=== PATIENT | female | born 1995 | race Caucasian/White ===

== ENCOUNTER → 2018-10-09 | Outpatient (CLI) | payer OTHER ==
--- NOTE | 2018-10-09 18:21 | Diagnostic Imaging Report ---
CLINICAL INDICATION: Patient with post coital bleeding. EXAM: Transabdominal and transvaginal ultrasound of the pelvis. COMPARISON: None. FINDINGS: There is a 6 mm x 5 mm x 8 mm nabothian cyst. Otherwise, the uterus has normal configuration, echogenicity and size. Uterus measures 8.1 cm x 6.2 cm x 4.2 cm. Endometrial stripe is 7 mm. The right and left ovaries are unable to be visualized and cannot be evaluated. There is no gross abnormality in the right and left adnexal regions as visualized. There is no significant intrapelvic free fluid. IMPRESSION: 1: Both ovaries are unable to be visualized on this exam, limiting evaluation. Otherwise, there is no evidence of acute abnormality seen on this exam. There is no significant pelvic free fluid. 2: Nabothian cyst. Dictated by: Dictated on workstation # [id number]
== END ==
LOC: RAD 16:20
PROVIDERS: ATTEND Obstetrics & Gynecology
DX: N88.8 Other specified noninflammatory disorders of cervix uteri (principal); N93.0 Postcoital and contact bleeding
CPT/HCPCS: 76830; 76856

== ENCOUNTER 2018-10-31 05:33 | Outpatient (CLI) | payer OTHER ==
[~2018-10-31] VITALS: Ht 171.4 cm; Wt 77.1 kg
== END 2018-10-31 09:44 | disposition home or self-care (01) ==
LOC: PREOP 05:33
PROVIDERS: ATTEND Obstetrics & Gynecology
DX: Z01.818 Encounter for other preprocedural examination (principal)

== ENCOUNTER 2018-11-02 08:11 | Day surgery (SDC) | payer OTHER ==
[2018-11-02] VITALS (12 sets, daily range): BP systolic 92–114; BP diastolic 55–85
[~2018-11-02] VITALS: Ht 171.4 cm; Wt 77.1 kg
[2018-11-02] MEDS: LACTATED RINGERS 1,000 ML IV PRN ×2 (08:45→11:22)
[2018-11-02] MEDS ORDERED: ceFAZolin INJECTION 1,000 MG in WATER (STERILE) FOR INJECTION 10 ML IV ONE (08:45)
[2018-11-02 08:59] LABS: BASOPHILS % (AUTO) 1 % (0-10); EOSINOPHILS # (AUTO) 0.1 10^3/uL (0.0-0.3); EOSINOPHILS % (AUTO) 1 % (0-10); HEMATOCRIT 41 % (35-52); HEMOGLOBIN 13.8 G/DL (11.5-16.0); LYMPHOCYTES # (AUTO) 1.8 X 10^3 (1.0-4.0); LYMPHOCYTES % (AUTO) 29 % (12-44); MEAN CORPUSCULAR HEMOGLOBIN 30 PG (25-34); MEAN CORPUSCULAR HGB CONC 34 G/DL (32-36); MEAN CORPUSCULAR VOLUME 89 FL (80-99); MEAN PLATELET VOLUME 11.4 FL (7.4-10.4); MONOCYTES # (AUTO) 0.4 X 10^3 (0.0-1.0); MONOCYTES % (AUTO) 6 % (0-12); NEUTROPHILS % (AUTO) 64 % (42-75); PLATELET COUNT 238 10^3/uL (130-400); RED CELL DISTRIBUTION WIDTH 11.9 % (10.0-14.5); WHITE BLOOD COUNT 6.3 10^3/uL (4.3-11.0)
[2018-11-02] MEDS ORDERED: BUPIVACAINE 0.25% 30 ML (SENSORCAINE) VIAL ONE (10:00)
[2018-11-02] MEDS ORDERED: DEXAMETHASONE 10 MG/ML (DECADRON) 1 ML VIAL ONE (10:21)
[2018-11-02] MEDS ORDERED: ROCURONIUM 10 MG/ML 5 ML SYRINGE IV ONE (10:21)
[2018-11-02] MEDS ORDERED: MIDAZOLAM 2 MG/2 ML (VERSED) VIAL ONE (10:21)
[2018-11-02] MEDS ORDERED: NEOSTIGMINE 1 MG/ML 5 ML SYRINGE ONE (10:21)
[2018-11-02] MEDS ORDERED: LIDOCAINE PF 2% 5 ML (XYLOCAINE) VIAL ONE (10:21)
[2018-11-02] MEDS ORDERED: proPOfol 200 MG/20 ML (DIPRIVAN) VIAL IV ONE (10:21)
[2018-11-02] MEDS ORDERED: ONDANSETRON 4 MG/2 ML (SDV) Z0FRAN ONE (10:21)
[2018-11-02] MEDS ORDERED: SEVOFLURANE (ULTANE) 15 ML INHAL SOLN ONE (10:21)
[2018-11-02] MEDS ORDERED: GLYCOPYRROLATE 0.2 MG/ML (ROBINUL) 2 ML VIAL ONE (10:22)
[2018-11-02] MEDS ORDERED: fentaNYL INJECTION 100 MCG/2 ML AMP ONE (10:22)
--- NOTE | 2018-11-02 10:27 | Progress Note-Pre Operative ---
Pre-Operative Progress Note H&P Reviewed The H&P was reviewed, patient examined and no changes noted. Date Seen by Provider: November 02, 2018 Time Seen by Provider: 09:45 Date H&P Reviewed: November 02, 2018 Time H&P Reviewed: 09:45 Pre-Operative Diagnosis: Postcoital bleeding DALLIN KATZ DO November 02, 2018 10:27
[2018-11-02] MEDS ORDERED: D5 LR IV SOLUTION 1,000 ML IV SCH (10:28)
[2018-11-02] MEDS ORDERED: IBUP-1773 PO (10:30)
[2018-11-02] MEDS ORDERED: HYDR-4226 PO (10:30)
[2018-11-02] MEDS ORDERED: ONDANSETRON 4 MG/2 ML (SDV) Z0FRAN IVP PRN ×2 (10:30→12:15)
[2018-11-02] MEDS ORDERED: KETOROLAC 30 MG/ML VIAL IVP ONE (10:30)
[2018-11-02] MEDS ORDERED: HYDROcodone/APAP 5 MG/325 MG (LORTAB) TAB PO PRN (10:30)
--- NOTE | 2018-11-02 10:31 | Discharge Inst-Women's Service ---
Discharge Inst-Women's Serv Depart Medication/Instructions New, Converted or Re-Newed RX: RX on Chart Consults/Follow Up Additional Follow Up: Yes Orders/Referrals Dr. Cordova in 2 weeks Activity Activity: Activity as Tolerated Driving Instructions: No Driving for 1 Week NO SMOKING: NO SMOKING Nothing Inside Vagina: No Douching, No Athelstan, No Tampons Diet Discharge Diet: No Restrictions Symptoms to Report to : Bleeding Excessive, Pain Increased, Fever Over 101 Degrees F, Vaginal Bleeding Increase, Questions/Concerns For Any Problems or Questions: Contact Your Physician Skin/Wound Care Infection Signs and Symptoms: Increased Redness, Foul Odor of Wound, Increased Drainage, Skin Itchy or Has a Rash, Increased Swelling, Temperature Above 101 F Operative Area Clean and Dry: Keep Incision Clean/Dry Stitches/Nita/Dermabond: Dermabond, Care of Stitches Bathing Instructions: DALLIN Kat DO November 02, 2018 10:31
[2018-11-02] MEDS ORDERED: METHYLENE BLUE IV ONE (11:21)
--- OUTSIDE RECORDS SUMMARY | 2018-11-02 12:14 | XMS REPORT ---
Author Author JP HAQUE [facility] eClinicalWorks Address Unknown Phone Unavailable Care Team Providers Care Corrective Therapy Aide Name Role Phone JP HAQUE CP Unavailable Allergies, Adverse Reactions, Alerts Substance Reaction Event Type N.K.D.A. Info Not Available Non Drug Allergy Problems Problem Type Condition ICD-9 Code Onset Dates Condition Status Assessment Overweight (BMI 25.0-29.9) 278.02 Active Medications Medication Code System Code Instructions Start Date End Date Status Dosage Venlafaxine HCl [facility] [address]-32 37.5 MG Orally Once a day 1 tablet with food Phentermine HCl [facility] [address]-21 37.5 MG Orally Once a day Feb 18, 2015 Mar 20, 2015 as directed Procedures Procedure Coding System Code Date Office Visit, New Pt., Level 4 CPT-4 91650 Feb 18, 2015 Vital Signs Date/Time: Feb 18, 2015 Temperature 98.7 F Weight 165.1 lbs Height 68 in BMI 25.10 Index Blood Pressure Diastolic 88 mmHg Blood Pressure Systolic 110 mmHg Cardiac Monitoring Heart Rate 78 bpm Results No Known Results Summary Purpose eClinicalWorks Submission
[2018-11-02] MEDS ORDERED: HYDROmorphone 2 MG/ML VIAL (DILAUDID) IV ONE (12:15)
[2018-11-02] MEDS ORDERED: morphine INJ 10 MG/ML 1ML (SYR OR VIAL) IVP ONE (12:15)
[2018-11-02] MEDS ORDERED: MEPERIDINE (DEMEROL) INJ 50 MG/ML ONE (12:15)
--- OUTSIDE RECORDS SUMMARY | 2018-11-02 12:15 | XMS REPORT | Continuity of Care Document ---
Author Organization Unknown Address Unknown Allergies Active Description Code Type Severity Reaction Onset Reported/Identified Relationship to Patient Clinical Status Yes No Known Drug Allergies [id number] Drug Allergy Unknown N/A 10/31/2018 Medications There is no data. Problems Date Dx Coded Attending Type Code Diagnosis Diagnosed By 10/10/2018 DALLIN KATZ DO Ot N88.8 OTHER SPECIFIED NONINFLAMMATORY DISORDER 10/10/2018 REINALDOECH DALLIN GIBBONS S Ot N93.0 POSTCOITAL AND CONTACT BLEEDING 10/10/2018 REINALDOECH DALLIN GIBBONS Ot N88.8 OTHER SPECIFIED NONINFLAMMATORY DISORDER 10/10/2018 FENECH DO, DALLIN S Ot N93.0 POSTCOITAL AND CONTACT BLEEDING 10/15/2018 REINALDOECH DALLIN GIBBONS Ot N88.8 OTHER SPECIFIED NONINFLAMMATORY DISORDER 10/15/2018 FENECH DO, DALLIN S Ot N93.0 POSTCOITAL AND CONTACT BLEEDING 10/31/2018 REINALDOECH DALLIN GIBBONS Ot Z01.818 ENCOUNTER FOR OTHER PREPROCEDURAL EXAMIN 11/01/2018 DALLIN KATZ DO Ot Z01.818 ENCOUNTER FOR OTHER PREPROCEDURAL EXAMIN Procedures There is no data. Results There is no data. Encounters ACCT No. Visit Date/Time Discharge Status Pt. Type Provider Facility Loc./Unit Complaint [id number] 10/31/2018 05:33:00 10/31/2018 09:44:00 DIS Outpatient DALLIN KATZ DO [facility] PREOP POST COITAL BLEEDING [id number] 10/09/2018 16:20:00 10/09/2018 23:59:59 CLS Outpatient DALLIN KATZ DO [facility] RAD POSTCOITAL BLEEDING [id number] 11/02/2018 10:00:00 PEN Preadmit DALLIN KATZ DO [facility] SDC POST COITAL BLEEDING
[2018-11-02] MEDS ORDERED: MEPERIDINE (DEMEROL) INJ 50 MG/ML IVP ONE (13:00)
--- NOTE | 2018-11-02 14:26 | Anesthesia-General Post-Op ---
General Patient Condition Mental Status/LOC: Same as Preop Cardiovascular: Satisfactory Nausea/Vomiting: Absent Respiratory: Satisfactory Pain: Controlled Complications: Absent Post Op Complications Complications None Follow Up Care/Instructions Patient Instructions None needed. Anesthesia/Patient Condition Patient Condition Patient is doing well, no complaints, stable vital signs, no apparent adverse anesthesia problems. No complications reported per nursing. [place] [facility] [place] Yes MANGO MOMIN CRNA November 02, 2018 14:26
--- NOTE | 2018-11-02 16:49 | OPERATIVE REPORT ---
DATE OF SERVICE: 11/02/2018 PREOPERATIVE DIAGNOSIS: A 23-year-old female with postcoital bleeding. POSTOPERATIVE DIAGNOSES: 1. A 23-year-old female with postcoital bleeding. 2. Patent bilateral fallopian tubes. PROCEDURE: Diagnostic laparoscopy with chromotubation, hysteroscopic evaluation of the endometrium with resection of endometrial polyp. SURGEON: Dallin Katz DO ANESTHESIA: General endotracheal. ESTIMATED BLOOD LOSS: Minimal. URINE OUTPUT: 250 mL clear at the end of the procedure. FLUIDS: 1200 mL lactated Ringer's solution. FINDINGS: Bilateral patent fallopian tubes with methylene blue dye spilling from both distal tubal ampulla, endometrium with excessive amounts of fluffy endometrial tissue and questionable endometrial polyp. Grossly normal-appearing external female genitalia and vaginal mucosa. SPECIMENS SENT: Endometrial curettings. INDICATIONS FOR PROCEDURE: This 23-year-old female, the patient had seen me in the office initially in consultation for infertility, but also had noticed a significant change in sexual habits with postmenopausal bleeding in the past three to six months. On evaluation, there was seen no gross abnormalities. So, we discussed the possibility of endocervical endometrial polyp causing the bleeding as well as a cervical ectropion. We also discussed the possibility of her tubes being patent or there being bleed coming from the fallopian tube that could be evaluated with laparoscopy. So, we decided to proceed with diagnostic laparoscopy and also chromotubation to ensure tubal patency. Risks of the procedure were discussed with the patient in detail including risks of bleeding, infection, damage to surrounding structures including, but not limited to bowel, bladder, ureter, kidneys, postoperative complication, postoperative recovery timeframe, possible laparotomy and even . After everything was discussed with the patient in detail the consent was reviewed in detail. The patient agreed the consent, it was signed and she was then taken to the operating room. OPERATIVE REPORT IN DETAIL: Once in the operating room, anesthesia was found to be adequate. She was placed in dorsal lithotomy position and prepped and draped in normal sterile fashion. A timeout was performed. Mcclure catheter was placed. A weighted speculum was inserted into the patient's vagina. Right angle retractor was used to visualize the cervix, which was grasped at 12 o'clock position using a long Allis clamp. I then performed a paracervical block at the 3 and 9 o'clock positions on the cervix using 0.25% Marcaine, 5 mL were injected into each injection site. I then gently sounded the uterine cavity that was sounded to be 8 cm with some gentle dilation using Fannie dilators to approximately 6 mm. I then placed the hysteroscope and using the OwlTing ??? fluid management system and normal saline as my visual medium. I advanced the hysteroscope into endometrial cavity I am able to visualize the endometrial cavity. Bilateral ostia of the tubes were noted and the endometrium in the appropriate position. There is excessive amounts of fluffy endometrial tissue and there is a posterior wall endometrial polyp. The polyp was taken off with the resection forceps using the hysteroscope under direct visualization of the hysteroscope. I also then performed a gentle curettage after that was done, I placed a Kronner uterine manipulator into the cervix deploying the balloon in the endometrial cavity. Once this was done, I removed all the instruments from the patient's vagina. Performed change of gloves and took my attention to the abdomen where infraumbilically I infiltrated this area using 0.25% Marcaine. I made an 8 mm incision and made this in an elliptical fashion to excise the previous scar tissue of the umbilicus. I then advanced a Veress needle through the incision until intraperitoneal placement was confirmed using saline drop test. An opening pressure of 5 mmHg was noted. I preceded maximum pressure of 15 mmHg. I then removed the Veress needle and introduced a 5 mm blunt trocar. Once this was in place, I am able to confirm intraperitoneal placement using the laparoscope. There was no evidence of damage upon entry and a brief scan of the upper abdominal anatomy appears grossly normal. I then had the patient placed in steep Trendelenburg and I am able to visualize all my findings as listed above. There is some pressure that needs to be applied to the Kronner uterine manipulator in order to push the methylene blue dye that is diluted in 100 mL of normal saline. However, once the pressure gradient was met and I am able to push the dye and there is bilateral spilling of blue dye from the distal tubal ampulla after which there was no active bleeding noted from any sources. I then copiously irrigated the pelvis using normal saline through the same trocar site. Once it was irrigated I then released insufflation from the trocar. I removed the trocar after introducing another 0.25% Marcaine into the peritoneal cavity for postoperative pain management. Once this was done, I removed this trocar and reapproximated the skin using 4-0 Monocryl in interrupted subcuticular stitch. Dermabond was applied to the incision and bandage was placed over this. The Kronner uterine manipulator was removed and Mcclure catheter was removed. The patient tolerated the procedure well and sent to recovery in stable condition. Lap and sponge counts were correct at the end of the procedure. Instrument counts were correct as well. Job ID: [id number] DocumentID: [id number] Dictated Date: 11/02/2018 12:17:42 Field Research Associate Date: 11/02/2018 16:47:59 Dictated By: DALLIN KATZ DO
== END 2018-11-02 14:50 | disposition home or self-care (01) ==
LOC: SDC 08:11
PROVIDERS: ATTEND Obstetrics & Gynecology
DX: N93.0 Postcoital and contact bleeding (principal); N94.19 Other specified dyspareunia; N84.0 Polyp of corpus uteri
CPT/HCPCS: 36415; 84703; 85025; 86850; 86900; 86901; 87081

== ENCOUNTER 2018-11-03 13:10 | Emergency (ER) | payer OTHER ==
[~2018-11-03] VITALS: Ht 171.4 cm; Wt 77.1 kg
[~2018-11-03 13:10] MED LIST: HYDR-4226 PO; IBUP-1773 PO
[2018-11-03] MEDS ORDERED: DIAZEPAM 5 MG (VALIUM) TABLET PO ONE (13:45)
[2018-11-03] MEDS ORDERED: morphine INJ 10 MG/ML 1ML (SYR OR VIAL) IM STA (14:33)
--- NOTE | 2018-11-03 14:43 | Diagnostic Imaging Report ---
EXAMINATION: Single frontal view of the chest with AP and supine views of the abdomen. INDICATION: Abdominal and shoulder pain. Recent abdominal surgery for endometriosis. COMPARISON: None available. FINDINGS: The lungs are clear and the pulmonary vasculature is normal. No pneumothorax or significant pleural effusion. The cardiomediastinal silhouette is normal. No acute osseous abnormality. Pneumoperitoneum is demonstrated, with gas noted underlying both hemidiaphragms. Nonobstructive bowel gas pattern. Moderate gaseous distention of the stomach. Gas and stool are noted throughout the colon. No unusual stool burden. No organomegaly or abnormal abdominal calcifications are noted. Surgical clips are demonstrated in the right upper quadrant. No acute osseous abnormality is appreciated. IMPRESSION: Pneumoperitoneum, with free air noted underlying both hemidiaphragms. This may be related to recent surgery, depending on when and what type of surgery was performed. No acute chest disease. The above findings were discussed with Dr. Edmonds in the [place] [facility] on 11/03/2018 at 1430 hrs. Dictated by: Dictated on workstation # [id number]
--- NOTE | 2018-11-03 14:57 | ED Abdominal Pain ---
General Chief Complaint: Upper Extremity Stated Complaint: RT SHOULDER PAIN Nursing Triage Note: PATIENT C/O RIGHT SHOULDER PAIN. STATES SHE HAD LAPAROSCOPIC SURGERY YESTERDAY TO REMOVE A UTERINE CYST AND FLUSH OUT HER FALLOPIAN TUBES. SHE STATES THE PAIN HAS BECOME SEVERE. Sepsis Screen: No Definite Risk History of Present Illness Date Seen by Provider: November 03, 2018 Time Seen by Provider: 14:00 Initial Comments This is a 23 y/o f who presents to the ED for evaluation. pt is s/p laparoscopic intra abdominal evaluation for fertility evaluation. Required removal of "cyst from uterus" and had the fallopian tubes "flushed out." Has been taking Ibuprofen 600mg every 6 hrs and Hydrocodone 5/325 1 tablet every 6 hrs. Has had pain since surgery with some relief at home with pain medications. Has largely been laying on R side. Reports uncontrolled R shoulder pain that is increased with inspiration over the past 2-3 hrs. No increased abdominal pain. S/p cholecystectomy. Pain is constant, 10/10, worse with movement/breathing. Allergies and Home Medications Allergies Coded Allergies: No Known Drug Allergies (Unverified , 10/31/18) Home Medications Hydrocodone/Acetaminophen 1 Each Tablet, 1 TAB PO Q4-6HR Prescribed by: DALLIN CORDOVA on 11/02/18 1030 Ibuprofen 600 Mg Tablet, 600 MG PO Q6H Prescribed by: DALLIN CORDOVA on 11/02/18 1030 Patient Home Medication List Home Medication List Reviewed: Yes Review of Systems Review of Systems Constitutional: No chills, No fever, No weakness EENTM: No Symptoms Reported Respiratory: Denies Cough, Denies Shortness of Air, Denies Stridor, Denies Wheezing Cardiovascular: Denies Chest Pain, Denies Edema, Denies Palpitations, Denies Syncope Gastrointestinal: Denies Abdominal Pain, Denies Nausea, Denies Vomiting Past Nmyafeu-Jbekyb-Zqjyue Hx Patient Social History Alcohol Use: Denies Use Recreational Drug Use: No Smoking Status: Never a Smoker 2nd Hand Smoke Exposure: No Recent Foreign Travel: No Contact w/Someone Who Travel: No Recent Infectious Disease Expo: No Recent Hopitalizations: No Physical Abuse: No Sexual Abuse: No Mistreated: No Fear: No Seasonal Allergies Seasonal Allergies: No Past Medical History Surgeries: Yes (OVARIAN CYST REMOVAL) Gallbladder Respiratory: No Cardiac: No Neurological: No Female Reproductive Disorders: Ovarian Cyst Genitourinary: No Gastrointestinal: No Musculoskeletal: No Endocrine: No HEENT: No Cancer: No Psychosocial: No Integumentary: No Blood Disorders: No Physical Exam Vital Signs Vital Signs - First Documented 11/03/18 13:20 Temp 98.3 Pulse 116 Resp 22 B/P (MAP) 119/78 (92) Pulse Ox 95 O2 Delivery Room Air Capillary Refill : Less Than 3 Seconds Height/Weight/BMI Height: 5'7.50" Weight: 170lbs. 0.0oz. 77.601144di; 26.2 BMI Method:Stated General Appearance: WD/WN, mild distress, other (anxious, non-toxic appearing) HEENT: PERRL/EOMI Respiratory: normal breath sounds, no respiratory distress, no accessory muscle use Cardiovascular: regular rate, rhythm, no JVD, no murmur Gastrointestinal: normal bowel sounds, soft, other (Mild suprapubic tenderness, mild juan-umbilical tenderness) Extremities: normal range of motion, other (no bony tenderness to R shoulder. No decreased ROM of R shoulder) Neurologic/Psychiatric: no motor/sensory deficits, alert, oriented x 3, other (Anxious/tearful) Skin: normal color, other (well healing incision to umbilical area. ) Progress/Results/Core Measures Results/Orders My Orders Orders - ROSA M STANLEY DO Acute Abd Series (11/03/18 13:33) Diazepam Tablet (Valium Tablet) (11/03/18 13:45) Morphine Injection (Morphine Injection (11/03/18 14:33) Medications Given in ED Current Medications Medications Dose Ordered Sig/Burt Route Start Time Stop Time Status Last Admin Dose Admin Diazepam 5 mg ONCE ONCE PO 11/03/18 13:45 11/03/18 13:46 DC 11/03/18 13:51 5 MG Vital Signs/I&O 11/03/18 11/03/18 13:20 15:33 Temp 98.3 97.6 Pulse 116 65 Resp 22 24 B/P (MAP) 119/78 (92) 98/60 (73) Pulse Ox 95 99 O2 Delivery Room Air Blood Pressure Mean: 92 Progress Progress Note : Progress Note 1456: Feeling significantly better. Pain controlled. Small free-abdominal air consistent with recent surgery. Non-acute abd on exam. Advised increased [place] at home for improved pain control. Notified pt's PROMOTIONS ASSISTANT Dr. Cordova of ED visit. Stable vital signs. ER return precautions given. Pt verbalized understanding. All questions answered. Diagnostic Imaging Comments Acute abd series IMPRESSION: Pneumoperitoneum, with free air noted underlying both hemidiaphragms. This may be related to recent surgery, depending on when and what type of surgery was performed. No acute chest disease. The above findings were discussed with Dr. Stanley in the [place] [facility] on 11/03/2018 at 1430 hrs. Departure Impression Primary Impression: Abdominal pain Additional Impression: Referred abdominal pain Disposition: HOME, SELF-CARE Condition: Improved Departure-Patient Inst. Decision time for Depature: 14:56 Referrals: [facility] (PCP) Primary Care Physician BOBY CALIX APRN (Family) Primary Care Physician Patient Instructions: Myomectomy, Laparoscopic Surgery Add. Discharge Instructions: Please read the attached handout. Please continue your scheduled Ibuprofen. You can increased your Hydrocodone dosing for improved pain control. DO NOT EXCEED 2 tablets every 4 hrs. Return to the ER if your symptoms worsen or you have any other concerns. All discharge instructions reviewed with patient and/or family. Voiced understanding. ROSA M STANLEY DO November 03, 2018 14:57
[2018-11-03 15:33] VITALS: BP 98/60
== END 2018-11-03 15:32 | disposition home or self-care (01) ==
LOC: EDUNIT# 13:10 → ER FS 13:11
DX: R10.33 Periumbilical pain (principal); Z90.49 Acquired absence of other specified parts of digestive tract; Z87.448 Personal history of other diseases of urinary system
CPT/HCPCS: 74022; 96372

== ENCOUNTER → 2019-01-09 | Outpatient (CLI) | payer OTHER | LOC: CARD 12:47 | PROVIDERS: ATTEND Internal Medicine Interventional Cardiology | DX: I49.3 Ventricular premature depolarization (principal) | CPT/HCPCS: 93225; 93226; 93306 ==

== ENCOUNTER 2019-01-11 12:18 | Outpatient (RCR) | payer OTHER | END 2019-04-11 | disposition home or self-care (01) | LOC: CARD 12:18 | PROVIDERS: ATTEND Internal Medicine Interventional Cardiology | DX: O99.89 Other specified diseases and conditions complicating pregnancy, childbirth and the puerperium (principal); I49.3 Ventricular premature depolarization; R00.2 Palpitations; R06.02 Shortness of breath ==

== ENCOUNTER → 2019-03-23 | Outpatient (CLI) | payer OTHER ==
--- NOTE | 2019-03-23 17:27 | Diagnostic Imaging Report ---
TECHNIQUE: Multiple real-time grayscale images were obtained over the gravid uterus. COMPARISON: None FINDINGS: Biometrical measurements are as follows: Biparietal 4.15 cm, age 18 weeks 5 days. Head circumference 16.74 cm, age 19 weeks 3 days. Abdominal circumference 13.56 cm, age 19 weeks 1 days. Femur length 3.01 cm, age 19 weeks 3 days. Sonographic estimate age: 19 weeks 2 days. Sonographic estimated date of delivery: 08/15/2019. Estimated Weight: 277 gm (+/- 40 gm). LMP percentile: 86%. heart rate: 132 beats per minute. number: 1 of 1. kidneys, bladder, ventricles, four-chamber heart and cord insertion appear normal. The spine, three-vessel cord and stomach were not adequately visualized. IMPRESSION: Single living intrauterine estimated gestational age of 19 weeks and 2 days with estimated date of delivery based on ultrasound of 08/15/2019. Dictated by: Dictated on workstation # [id number]
== END ==
LOC: RAD 14:16
PROVIDERS: ATTEND Nurse Practitioner Women's Health
DX: Z34.92 Encounter for supervision of normal pregnancy, unspecified, second trimester (principal); Z3A.19 19 weeks gestation of pregnancy
CPT/HCPCS: 76805

== ENCOUNTER 2019-05-14 12:06 | Inpatient (IN) | payer OTHER ==
[~2019-05-14] VITALS: Ht 170.2 cm; Wt 85.1 kg
--- NOTE | 2019-05-14 11:55 | NUR ---
TONE WU presented to unit via W/C from OFFICE, accompanied by GIO CHENG AND MOTHER, with c/o LOWER BACK PAIN. TONE WU weighed, gowned, voided, and to bed. EFHM and TOCO applied, VS taken. TONE WU oriented to bed controls, call light, TV, heat, and A/C controls.
[2019-05-14] MEDS ORDERED: BUTORPHANOL INJ 2 MG/ML (STADOL) VIAL IV ONE (12:15)
[2019-05-14 12:20] VITALS: BP 109/70
[2019-05-14] MEDS: D5 LR IV SOLUTION 1,000 ML IV SCH ×2 (12:36→18:27)
[2019-05-14 13:07] LABS: BASOPHILS % (AUTO) 0 % (0-10); EOSINOPHILS # (AUTO) 0.1 10^3/uL (0.0-0.3); EOSINOPHILS % (AUTO) 0 % (0-10); HEMATOCRIT 34 % (35-52); HEMOGLOBIN 11.5 G/DL (11.5-16.0); LYMPHOCYTES # (AUTO) 2.1 X 10^3 (1.0-4.0); LYMPHOCYTES % (AUTO) 17 % (12-44); MEAN CORPUSCULAR HEMOGLOBIN 30 PG (25-34); MEAN CORPUSCULAR HGB CONC 34 G/DL (32-36); MEAN CORPUSCULAR VOLUME 89 FL (80-99); MEAN PLATELET VOLUME 10.9 FL (7.4-10.4); MONOCYTES # (AUTO) 0.7 X 10^3 (0.0-1.0); MONOCYTES % (AUTO) 6 % (0-12); NEUTROPHILS # (AUTO) 9.3 X 10^3 (1.8-7.8); NEUTROPHILS % (AUTO) 77 % (42-75); PLATELET COUNT 229 10^3/uL (130-400); RED CELL DISTRIBUTION WIDTH 12.4 % (10.0-14.5); WHITE BLOOD COUNT 12.1 10^3/uL (4.3-11.0)
[2019-05-14 13:29] LABS: ALANINE AMINOTRANSFERASE 8 U/L (0-55); ALBUMIN 3.5 GM/DL (3.2-4.5); ALKALINE PHOSPHATASE 60 U/L (40-136); BILIRUBIN,TOTAL 0.2 MG/DL (0.1-1.0); BUN/CREATININE RATIO 13; CALCIUM 8.7 MG/DL (8.5-10.1); CARBON DIOXIDE 21 MMOL/L (21-32); CHLORIDE 107 MMOL/L (98-107); CREATININE SERUM 0.69 MG/DL (0.60-1.30); GFR ESTIMATED > 60; GLUCOSE 81 MG/DL (70-105); POTASSIUM 3.9 MMOL/L (3.6-5.0); SODIUM 136 MMOL/L (135-145); TOTAL PROTEIN 6.7 GM/DL (6.4-8.2)
[2019-05-14] MEDS ORDERED: BUTORPHANOL INJ 2 MG/ML (STADOL) VIAL IV PRN (13:30)
--- NOTE | 2019-05-14 15:27 | Diagnostic Imaging Report ---
PROCEDURE: US Renal Bilateral. TECHNIQUE: Multiple Real-time grayscale images were obtained over the kidneys in various projections bilaterally. INDICATION: Right upper quadrant pain and low back pain. FINDINGS: The right kidney measures 12.6 x 6 x 6.2 cm and the left is 12.1 x 6.6 x 5.7 cm. Both kidneys demonstrate normal renal cortical thickness and echogenicity. There is right hydronephrosis. There is a focal echogenic area in the inferior aspect of the right kidney measuring 1.6 x 1.5 cm. There is no hydronephrosis on the left. The bladder is grossly normal in appearance. IMPRESSION: Hydronephrosis of the right kidney. Additionally, there is a focal echogenic area in the inferior pole of the right kidney. This is nonspecific and may reflect angiomyolipoma, stone, or possibly focal nephrocalcinosis. Recommend clinical correlation and, if warranted, this could be better evaluated with CT. Dictated by: Dictated on workstation # [id number]
[2019-05-14 16:00] VITALS: BP 107/64
[2019-05-14] MEDS: fentaNYL INJECTION 100 MCG/2 ML AMP IVP PRN ×4 (16:12→17:30)
--- NOTE | 2019-05-14 16:12 | Diagnostic Imaging Report ---
PROCEDURE: CT urinary tract, rule out kidney stone. TECHNIQUE: Multiple contiguous axial images were obtained through the abdomen and pelvis without the use of intravenous contrast. Auto Exposure Controls were utilized during the CT exam to meet ALARA standards for radiation dose reduction. INDICATION: Flank pain and hematuria. FINDINGS: The heart size is normal. The lung bases are clear. The liver is normal in size and without focal lesions. Gallbladder is surgically absent. There is no biliary ductal dilatation. Spleen is normal. Pancreas and adrenal glands are unremarkable. There are several small nonobstructing stones in the left kidney. Largest measuring 5 mm. There is severe right hydronephrosis secondary to stone at the right UVJ measuring 8.4 x 5.2 mm. Incidental note is made of third trimester gestation. The osseous structures are unremarkable. IMPRESSION: Severe right hydronephrosis secondary to an 8 x 5 mm stone at the right UVJ. There are additional nonobstructing bilateral renal calculi. Dictated by: Dictated on workstation # [id number]
--- NOTE | 2019-05-14 16:52 | NUR ---
EFM removed , transferred to room 301 via bed. s/o present at bedside.
--- NOTE | 2019-05-14 17:18 | History & Physical ---
History and Physical Date Seen by Provider: May 14, 2019 Time Seen by Provider: 17:12 This patient is a 24-year-old white female with an EDC of August 21, 2019 who presented to my clinic with complaint of urinary frequency and dysuria and l ow back pain that progressed to severe right flank pain. Evaluation in my clinic ruled out labor. UA obtained in my clinic showed increased red cells consistent with a urinary tract stone. She was sent to labor and delivery for evaluation. An ultrasound noted severe right ureteral dilati on/hydronephrosis with a right renal stone and a CT showed 5 mm x 8 mm obstructing ureteral stone at the right UVJ. Dr. Dyson was consult for recommendations he agreed with IV fluids pain control use of Flomax and prophylactic antibiotics through the night and reevaluate in the morning. The patient agrees with that plan at this point. She has required several doses of fentanyl for pain control but at this point is comfortable to an acceptable degree. Patient denies rupture membranes or bleeding she has no history of stones she has no other health problems and her first was uncomp licated Allergies are none Medications are vitamins Medical social and surgical histories are per the antepartum record HEENT exam is normal Neck is supple no lymphadenopathy no thyromegaly Abdomen is gravid soft nontender nondistended Extremities show no clubbing or cyanosis. There is no Homans sign. The back shows NO significant CVA tenderness there was mild tenderness the low back with palpation Patient does complain of vaginal burning. Cervical exam shows cervix that was thick and closed monitor showed a reactive heart rate pattern and no contractions Laboratory Tests 05/14/19 12:35 UA obtained in my clinic showed 26-50 red blood cells no white blood cells few bacteria and numerous epithelial cells Ultrasound as noted above showed a 16 x 10 mm right renal stone Noncontrast CT demonstrated a 5 mm x 8 mm obstructing stone at the right UVJ Assessment and plan right ureteral stone with renal colic. Plan at this point is hydration, pain control, prophylactic antibiotic, and Flomax and observe for spontaneous passage of the stone. If her symptoms increase we will entertain transfer to a tertiary care center, if her systems persist and she does not pass a stone then again we would reconsider her management with her consult with Dr. Dyson that could result in intervention here versus transfer to a tertiary care center. Right ureteral stone with severe renal colic at 26 weeks gestation Allergies and Home Medications Allergies Coded Allergies: No Known Drug Allergies (Unverified , 10/31/18) Home Medications Hydrocodone/Acetaminophen 1 Each Tablet, 1 TAB PO Q4-6HR Prescribed by: DALLIN KATZ on 11/02/18 1030 Ibuprofen 600 Mg Tablet, 600 MG PO Q6H Prescribed by: DALLIN KATZ on 11/02/18 1030 Patient Home Medication List Home Medication List Reviewed: Yes SHALONDA CAMARGO MD May 14, 2019 17:18 POS
[2019-05-14] MEDS ORDERED: TAMSULOSIN 0.4 MG (FLOMAX) CAP PO SCH (17:30)
[2019-05-14] MEDS ORDERED: KETOROLAC 30 MG/ML VIAL ONE (17:34)
--- NOTE | 2019-05-14 17:35 | NUR ---
decreased IV fluids to 100cc/hr. Abx hung and pain meds given per dr orders. continuing to monitor closely.
[2019-05-14] MEDS: ceFAZolin 2 GM/50 ML NS 50 ML IV SCH (17:38)
[2019-05-14] MEDS: KETOROLAC 30 MG/ML VIAL IVP PRN ×2 (17:40→22:52)
[2019-05-14] MEDS ORDERED: fentaNYL INJECTION 100 MCG/2 ML AMP IVP ONE (17:45)
--- NOTE | 2019-05-14 18:14 | NUR ---
dr carvajal notified of patient nausea and 275 cc of emesis. new orders received.
[2019-05-14] MEDS ORDERED: ONDANSETRON 4 MG/2 ML (SDV) Z0FRAN IVP ONE (18:15)
[2019-05-14 18:50] VITALS: BP 107/64
[2019-05-14] MEDS ORDERED: PREN-37 PO (18:53)
[2019-05-14 20:15] VITALS: BP 97/59
--- NOTE | 2019-05-14 20:37 | NUR ---
Dr. Fox called to check on pt, update given per Kenia Watson RN, no new orders rc'd.
[2019-05-15] VITALS (11 sets, daily range): BP systolic 80–100; BP diastolic 45–55
[2019-05-15] MEDS ORDERED: fentaNYL INJECTION 100 MCG/2 ML AMP ONE ×3 (00:32→08:50)
[2019-05-15] MEDS: ceFAZolin 2 GM/50 ML NS 50 ML IV SCH ×3 (00:42→14:58)
[2019-05-15] MEDS: D5 LR IV SOLUTION 1,000 ML IV SCH ×2 (05:00→11:24)
[2019-05-15] MEDS: KETOROLAC 30 MG/ML VIAL IVP PRN (05:34)
--- NOTE | 2019-05-15 06:01 | NUR ---
Pt. put call light on, states Toradol did not help, requesting pain meds. Called Dr. Fox, update given, new orders rc'd for Fentanyl 50-100 mcg IV q 1 hr prn pain.
[2019-05-15] MEDS ORDERED: fentaNYL INJECTION 100 MCG/2 ML AMP IVP PRN (06:15)
--- NOTE | 2019-05-15 07:30 | NUR ---
DR. PROCTOR HERE TO GET UPDATE ON PT.
--- NOTE | 2019-05-15 07:40 | NUR ---
DR. CAMARGO HERE TO SEE PT.
--- NOTE | 2019-05-15 08:11 | NUR ---
DR. CAMARGO CALLED TO HAVE PT BECOME AND INPT WITH PROBABLE SURGERY BY DR. PROCTOR.
--- NOTE | 2019-05-15 08:30 | NUR ---
ASSESSMENT PERFORMED. DR. PROCTOR IN ROOM TALKING WITH PT AND S.O. REGARDING PLAN OF CARE FOR SURGERY TO REMOVE KIDNEY STONE. RHYS BURGOS CUT AND PRINT MACHINE OPERATOR IN ROOM TO PRE-OP PT. FHR 153. VSS.
--- NOTE | 2019-05-15 08:38 | NUR ---
CONSENT FOR SURGERY SIGNED/WITNESSED. ANCEF 2 GRAMS STARTED IVPB.
--- NOTE | 2019-05-15 08:50 | NUR ---
TO OR VIA BED IN STABLE CONDITION ACC BY OR STAFF.
[2019-05-15] MEDS ORDERED: BUPIVACAINE 0.5% 30 ML (SENSORCAINE) VIAL ONE (08:59)
--- NOTE | 2019-05-15 09:05 | Progress Note-Pre Operative ---
Pre-Operative Progress Note H&P Reviewed The H&P was reviewed, patient examined and no changes noted. Date Seen by Provider: May 15, 2019 Time Seen by Provider: 09:05 Date H&P Reviewed: May 15, 2019 Time H&P Reviewed: 09:05 Pre-Operative Diagnosis: RT DISTAL URETERAL AND BILATERAL RENAL STONES SONNY PROCTOR MD May 15, 2019 09:05 POS
--- NOTE | 2019-05-15 09:07 | Progress Note-Post Operative ---
Post-Operative Progess Note Surgeon (s)/Medical Receptionist Biller (s) Surgeon SONNY PROCTOR MD Medical Receptionist Biller: NONE Pre-Operative Diagnosis RT DISTAL URETERAL AND BILATERAL RENAL STONES Post-Operative Diagnosis SAME, DUS, AND VAGINAL PROLAPSE Procedure & Operative Findings Date of Procedure 05/15/19 Procedure Performed/Findings CYSTO, UD, ATTEMPTED RT URETERAL STONE EXTRACTION, RT URETEROSCOPY WITH STONE LITHOTRIPSY AND BASKET, RT RETROGRADE UROGRAM AND INSERTION OF RT STENT Anesthesia Type SPINAL Estimated Blood Loss Estimated blood loss (mL): NONE Specimens/Packing Specimens Removed STONE FRAGMENTS Packing: NONE SONNY PROCTOR MD May 15, 2019 09:06 POS
[2019-05-15] MEDS ORDERED: PHENYLEPHRINE 100 MCG/ML 10 ML (ANESTHESIA) SYR ONE (09:29)
[2019-05-15] MEDS ORDERED: IOPAMIDOL 61% 30 ML (ISOVUE 300) VIAL IV ONE (10:11)
[2019-05-15] MEDS ORDERED: LACTATED RINGERS 1,000 ML IV PRN (10:16)
[2019-05-15] MEDS ORDERED: ONDANSETRON 4 MG/2 ML (SDV) Z0FRAN IVP PRN (10:30)
--- NOTE | 2019-05-15 11:05 | NUR ---
PT RETURNED TO ROOM 301 VIA PT BED FROM PACU ACC BY PAPI JACOBS AFTER A RIGHT RETROGRADE UROGRAM, CYSTOSCOPY, URETHRAL DILATATION,ATTEMPTED RIGHT STONE EXTRACTION, RIGHT URETEROSCOPY WITH STONE LITHOTRIPSY AND RIGHT STENT PLACEMENT BY DR. PROCTOR. A/O X4. REMAINS UNABLE TO LIFT LEGS R/T SPINAL. DENIES ANY PAIN. VSS. S.O. AT BEDSIDE. IV PATENT. SITE CLEAR. TUBING CHANGED AND IV PLACED ON PUMP.
--- NOTE | 2019-05-15 11:10 | NUR ---
FHR 155. ACTIVE FETUS NOTED. SPOUSE BROUGHT IN DONUTS FOR PT TO EAT.
[2019-05-15] MEDS ORDERED: ACETAMINOPHEN 500 MG TAB (TYLENOL) ONE (11:36)
--- NOTE | 2019-05-15 11:40 | NUR ---
TYLENOL 1000 MG P.O. FOR C/O HEADACHE. STATES HAS FREQUENT HEADACHES IN GENERAL.
[2019-05-15] MEDS ORDERED: ACETAMINOPHEN 500 MG TAB (TYLENOL) PO ONE (11:45)
--- NOTE | 2019-05-15 12:30 | NUR ---
PT WANTING TO REST. S.O. AT BEDSIDE. STARTING TO LIF LEGS MUCH BETTER. DENIES URGE TO VOID YET.
--- NOTE | 2019-05-15 12:50 | CONSULTATION REPORT ---
DATE OF SERVICE: 05/15/2019 ATTENDING PHYSICIAN: Dave Fox MD SUMMARY: After reviewing the patient's records, interviewing her and examining her, this is a 24-year-old white lady, consulted for an 8 mm stone in the very right ureter causing severe hydronephrosis and pain. We will give her a chance overnight to pass the stone with hydration and pain medication, but she failed to do so. She has no previous history of renal stones; however, she does have bilateral nonobstructing renal stones as well. She has no known drug allergies. Her only medication is vitamins and she is healthy. I reviewed her ultrasound and CAT scan. The ultrasound was talking about the big stone in the kidney; however, the largest stone in the left kidney measures 5 mm, so by CAT scan, which is more accurate diagnosis. She does have right flank pain. She is in moderate distress. Vitals were reviewed. IMPRESSION: 1. Right distal ureteral stone with obstruction and pain. 2. Bilateral renal stones. PLAN: I had a long discussion with her and her about her options, one is to proceed here with right ureteroscopy with stone lithotripsy, possible basket stent or lithotomy. If unable to do so, transfer her or transfer from the very beginning to a place like or elsewhere of her choice. She and her wanted to proceed here. They understand all the implications, risks, complications as well as possible complications for the baby. Job ID: [id number] DocumentID: [id number] Dictated Date: 05/15/2019 08:33:03 Hotbed Operator Date: 05/15/2019 12:49:28 Dictated By: SONNY PROCTOR MD
--- NOTE | 2019-05-15 13:30 | NUR ---
RESTING IN BED. WITH EYES CLOSED. NO APPARENT DISTRESS. OPTED NOT TO AWAKEN PT. S.O. AT BEDSIDE.
--- NOTE | 2019-05-15 14:00 | NUR ---
PT AWAKENED WITH A FULL BLADDER. VOIDED 1000 CC BLOOD TINGED URINE. REASSURANCE GIVEN OF BLOOD BEING FROM PROCEDURE. PERICARE DONE BY PT.
--- NOTE | 2019-05-15 14:05 | NUR ---
FHR 150. VSS.
[2019-05-15] MEDS ORDERED: TETANUS,DIPTH,PERTUSS P/F (BOOSTRIX) 0.5 ML VIAL IM ONE (14:45)
--- NOTE | 2019-05-15 14:58 | NUR ---
ANCEF 2 GRAMS HUNG IVPB.
--- NOTE | 2019-05-15 15:31 | NUR ---
TDAP GIVEN IM IN LEFT DELTOID. SITE CLEAR.
[2019-05-15] MEDS ORDERED: NITR-68 PO (15:53)
--- NOTE | 2019-05-15 16:10 | NUR ---
DISCHARGE INSTRUCTIONS REVIEWED WITH PT AND S.O. AND COPY GIVEN. STATES UNDERSTANDING OF ALL INSTRUCTIONS AND NEED TO F/U SCHEDULED AND NEEDED.
--- NOTE | 2019-05-15 16:15 | NUR ---
DISMISSED AMB FROM [facility] IN STABLE CONDITION TO FAMILY CAR ACC BY TALI FUCHS RN.
--- NOTE | 2019-05-15 16:26 | Progress Note ---
Standard Progress Note Progress Notes/Assess & Plan Date Seen by a Provider: May 15, 2019 Time Seen by a Provider: 07:50 Progress/Assessment & Plan Patient continues to require pain medication due to obstruction of the right ureter. Pain is tolerable with Toradol every 6 hours and Fentanyl PRN. Nausea ok with meds. Voiding well. Dr. Navarrete is aware of patient's condition and status and urology consult is pending. Dr. Navarrete is considering surgical intervention today. Vital Signs Date Time Temp Pulse Resp B/P (MAP) Pulse Ox O2 Delivery O2 Flow Rate FiO2 05/15/19 14:05 37.1 93 18 95/55 (68) 97 Room Air 05/15/19 11:10 37.0 88 16 97/53 (68) 99 Room Air 05/15/19 11:05 36.4 20 89/55 (66) 98 Room Air 05/15/19 11:05 Room Air 05/15/19 11:00 Room Air 05/15/19 10:50 20 89/55 (66) 98 Room Air 05/15/19 10:45 Room Air 05/15/19 10:40 20 86/48 (61) 97 Room Air 05/15/19 10:30 20 80/47 (58) 97 Room Air 05/15/19 10:30 Room Air 05/15/19 10:20 20 85/46 (59) 100 Room Air 05/15/19 10:15 OxyMask 5 05/15/19 10:08 OxyMask 5 05/15/19 10:08 36.4 16 86/48 (61) 100 OxyMask 5 05/15/19 08:30 37.3 81 18 100/54 (69) 97 Room Air 05/15/19 00:38 36.3 65 18 88/45 (59) 96 Room Air 05/14/19 20:15 36.8 87 20 97/59 (72) 96 Room Air 05/14/19 18:50 36.8 82 18 98 Room Air I & O 05/15/19 07:00 Intake Total 1050 ml Balance 1050 ml VSS AFB Abd is gravid and nontender Ext show no clubbing or cyanosis Pelvis exam is deferred A/P 26 weeks with Right ureteral obstruction due to relatively large ureteral stone at the RVJ. Dr. Navarrete is aware and agrees to evaluate for operative intervention vs transfer to tertiary care facility. Plan for discharge home when stone issue is resolved. Follow up in clinic depends on symptoms. Final Diagnosis Right ureteral stone SHALONDA CAMARGO MD May 15, 2019 16:26 POS
--- NOTE | 2019-05-15 16:58 | OPERATIVE REPORT ---
DATE OF SERVICE: 05/15/2019 PREOPERATIVE DIAGNOSES: Right distal ureteral stone and bilateral renal stones. POSTOPERATIVE DIAGNOSES: Right distal ureteral stone and bilateral renal stones, distal urethral stenosis and vaginal prolapse. SURGEON: Dhruv Proctor MD. ANESTHESIA: Spinal. COMPLICATIONS: None. OPERATION PERFORMED: Cystoscopy with urethral dilatation, attempted extraction of right ureteral stone and right ureteroscopy with stone lithotripsy and basket, retrograde urogram and insertion of right stent. DESCRIPTION OF PROCEDURE: Under satisfactory spinal anesthesia, the patient in lithotomy position, genitalia were prepped and draped in the usual sterile fashion, noted the vaginal prolapse. We tried to pass the cystoscope 23-Kazakh, there was a distal urethral stenosis that responded to dilatation, insertion of a cysto following. Examination of the bladder was normal except that stone was seen bulging through the orifice. I tried to extract it with the stone forceps, but was unsuccessful. I went ahead and exchanged with ureteroscope, went to the stone, the part of the stone was pretty soft and friable and breaking easy. I passed a Mckeon basket, broke up the stone and continue breaking it up with the lithoclast. There was some fragments proximally and took care of them. Then, I went all the way up to the kidney and down again to the bladder. There were no fragments that I could see. I reinserted the cystoscope, did a retrograde to confirm there was no filling defect and complete emptying of the system on the right side. I elected to play safe and put a stent at least for 2 to 3 days, so I passed a 6-Kazakh 26 cm double-J stent all the way up to the kidney guided was very short burst of fluoroscopy. The total time of which was only 9 seconds for the whole procedure, emptied the bladder, removed the cystoscope. The stent was nicely proximally fluoroscopically and distally endoscopically. The patient tolerated the procedure and anesthesia well and was sent to recovery room in stable condition. PLAN: See how she does by this evening, and the baby, if everything is okay, let them go home. I will see her back on Tuesday at 10 in the morning to remove the stent. The plan was fully explained to her and her as well as the next step later on after she delivers the baby to work her up for prevention of stones with blood and urine tests. We will reevaluate the stones in her kidney to see if it need any ESWL. This was also explained to them. Job ID: [id number] DocumentID: [id number] Dictated Date: 05/15/2019 10:33:21 Merchandising Representative Date: 05/15/2019 15:08:34 Dictated By: DHRUV PROCTOR MD
== END 2019-05-15 16:15 | disposition home or self-care (01) | DRG 818 ==
LOC: WSo 12:06 → LDRP 12:07 → WSo 16:59 → LDRP 17:00 → OBSVTOIN 05-15 08:12
PROVIDERS: ADMIT Obstetrics & Gynecology; ATTEND Obstetrics & Gynecology
PROC: 0T768DZ Dilation of Right Ureter with Intraluminal Device, Via Natural or Artificial Opening Endoscopic (ICD-10-PCS; 2019-05-15)
PROC: 0T7D7ZZ Dilation of Urethra, Via Natural or Artificial Opening (ICD-10-PCS; 2019-05-15)
PROC: 0TF68ZZ Fragmentation in Right Ureter, Via Natural or Artificial Opening Endoscopic (ICD-10-PCS; principal; 2019-05-15 09:02)
DX: O26.832 Pregnancy related renal disease, second trimester (principal); N13.2 Hydronephrosis with renal and ureteral calculous obstruction; O34.82 Maternal care for other abnormalities of pelvic organs, second trimester; N35.92 Unspecified urethral stricture, female; Z3A.26 26 weeks gestation of pregnancy; Z23 Encounter for immunization
CPT/HCPCS: 36415; 74176; 76770; 80053; 85025; 87081; 87210; 90715

== ENCOUNTER 2019-07-22 16:59 | Inpatient (IN) | payer OTHER ==
[2019-07-22] VITALS (29 sets, daily range): BP systolic 82–123; BP diastolic 49–77
[~2019-07-22] VITALS: Ht 170.2 cm; Wt 92.4 kg
--- NOTE | 2019-07-22 16:50 | NUR ---
TONE WU presented to unit via AMBULATORY from HOME, accompanied by S/O, with c/o CONTRACTIONS. TONE WU weighed, gowned, voided, and to bed. EFHM and TOCO applied, VS taken. TONE WU oriented to bed controls, call light, TV, heat, and A/C controls.
[~2019-07-22 16:59] MED LIST changes: +NITR-68 PO; +PREN-37 PO
[2019-07-22] MEDS ORDERED: D5 LR IV SOLUTION 1,000 ML IV ONE (17:25)
[2019-07-22] MEDS ORDERED: D5 LR IV SOLUTION 1,000 ML IV SCH ×2 (17:30→18:37)
[2019-07-22 17:55] LABS: BASOPHILS % (AUTO) 0 % (0-10); EOSINOPHILS # (AUTO) 0.1 10^3/uL (0.0-0.3); EOSINOPHILS % (AUTO) 1 % (0-10); HEMATOCRIT 31 % (35-52); HEMOGLOBIN 9.8 G/DL (11.5-16.0); LYMPHOCYTES # (AUTO) 1.9 X 10^3 (1.0-4.0); LYMPHOCYTES % (AUTO) 16 % (12-44); MEAN CORPUSCULAR HEMOGLOBIN 27 PG (25-34); MEAN CORPUSCULAR HGB CONC 32 G/DL (32-36); MEAN CORPUSCULAR VOLUME 84 FL (80-99); MEAN PLATELET VOLUME 11.7 FL (7.4-10.4); MONOCYTES # (AUTO) 0.8 X 10^3 (0.0-1.0); MONOCYTES % (AUTO) 7 % (0-12); NEUTROPHILS # (AUTO) 8.9 X 10^3 (1.8-7.8); NEUTROPHILS % (AUTO) 76 % (42-75); PLATELET COUNT 231 10^3/uL (130-400); RED CELL DISTRIBUTION WIDTH 13.4 % (10.0-14.5); WHITE BLOOD COUNT 11.7 10^3/uL (4.3-11.0)
[2019-07-22] MEDS ORDERED: AMPICILLIN FOR IV USE 2,000 MG in WATER (STERILE) FOR INJECTION 14.8 ML IV SCH (18:37)
[2019-07-22] MEDS ORDERED: MINERAL OIL CONCENTRATE 99.9% 15 ML UDC TOP PRN (18:45)
[2019-07-22] MEDS ORDERED: WATER (STERILE) FOR INJECTION 20 ML ONE (18:48)
[2019-07-22] MEDS ORDERED: AMPICILLIN FOR IV USE 2,000 MG VIAL ONE ×2 (18:48→18:49)
[2019-07-22] MEDS ORDERED: SUFENTA 0.6MCG/ML BUPIVA 0.125 100 ML ONE (18:59)
[2019-07-22] MEDS ORDERED: BUPIVACAINE 0.25% 30 ML (SENSORCAINE) VIAL ONE (19:15)
[2019-07-22] MEDS ORDERED: fentaNYL INJECTION 100 MCG/2 ML AMP ONE (19:15)
[2019-07-22] MEDS ORDERED: OXYTOCIN PRE-MIX DRIP 500 ML IV ONE (19:35)
[2019-07-22] MEDS ORDERED: LACTATED RINGERS 1,000 ML IV SCH (19:52)
[2019-07-22] MEDS ORDERED: EPIDURAL (SUFENTA 0.6MCG/ML BUPIVA 0.125%) 100 ML BAG EPI PRN (20:00)
[2019-07-22] MEDS ORDERED: NALOXONE 0.4 MG/ML 1 ML (NARCAN) VIAL IV PRN ×2 (20:00)
[2019-07-22] MEDS ORDERED: ONDANSETRON 4 MG/2 ML (SDV) Z0FRAN IV PRN (20:00)
[2019-07-22] MEDS ORDERED: diphenhydrAMINE 50 MG/ML INJ (BENADRYL) IV PRN (20:00)
[2019-07-22] MEDS ORDERED: METOCLOPRAMIDE INJ 10 MG/2 ML (REGLAN) IV PRN (20:00)
[2019-07-22] MEDS ORDERED: OXYTOCIN PRE-MIX DRIP 500 ML IV SCH (20:41)
--- NOTE | 2019-07-22 20:41 | History & Physical ---
History and Physical Date Seen by Provider: Jul 22, 2019 Time Seen by Provider: 20:37 This patient is a 24-year-old white female with a due date of 1719 putting her now at 35+ weeks gestation. She was admitted with complaint of contractions and pressure and pain. Her has been complicated by a renal stone/nephrolithiasis that required surgical removal at around 30-31 weeks gestation. She had been well since that time. Her first delivery was by vaginal delivery at 36 weeks gestation. She has been admitted for labor. GBS culture was not available so she has been started empirically on ampicillin for GBS prophylaxis. Her cervix has been changing fairly rapidly since admission. Patient denies rupture membranes but has had some bleeding. Allergies are none Medications are vitamins Medical social and surgical histories are per the antepartum record HEENT exam is normal Neck is supple without lymphadenopathy or thyromegaly Abdomen is gravid soft nontender nondistended Extremities show no clubbing cyanosis. There is no Homans sign. Pelvic exam shows a cervix that is 7-9 cm dilated very soft and very pliable very flexible. There is a bulging bag at the os. Amniotomy performed releasing wine fluid. Presentation is vertex station is -1. monitor shows normal heart rate pattern with contractions every 2-5 minutes. Laboratory Tests Test 07/22/19 17:40 Range/Units White Blood Count 11.7 H 4.3-11.0 10^3/uL Red Blood Count 3.69 L 4.35-5.85 10^6/uL Hemoglobin 9.8 L 11.5-16.0 G/DL Hematocrit 31 L 35-52 % Mean Corpuscular Volume 84 80-99 FL Mean Corpuscular Hemoglobin 27 25-34 PG Mean Corpuscular Hemoglobin Concent 32 32-36 G/DL Red Cell Distribution Width 13.4 10.0-14.5 % Platelet Count 231 130-400 10^3/uL Mean Platelet Volume 11.7 H 7.4-10.4 FL Neutrophils (%) (Auto) 76 H 42-75 % Lymphocytes (%) (Auto) 16 12-44 % Monocytes (%) (Auto) 7 0-12 % Eosinophils (%) (Auto) 1 0-10 % Basophils (%) (Auto) 0 0-10 % Neutrophils # (Auto) 8.9 H 1.8-7.8 X 10^3 Lymphocytes # (Auto) 1.9 1.0-4.0 X 10^3 Monocytes # (Auto) 0.8 0.0-1.0 X 10^3 Eosinophils # (Auto) 0.1 0.0-0.3 10^3/uL Basophils # (Auto) 0.0 0.0-0.1 10^3/uL Assessment and plan 35+ week gestation with spontaneous labor in a patient with previous delivery. Patient is receiving ampicillin for GBS prophylaxis. We anticipate a vaginal delivery. 35 week spontaneous labor Allergies and Home Medications Allergies Coded Allergies: No Known Drug Allergies (Unverified , 10/31/18) Home Medications Vit/Iron Fumarate/FA 1 Each Tablet, 1 EACH PO DAILY, (Reported) Patient Home Medication List Home Medication List Reviewed: Yes SHALONDA CAMARGO MD Jul 22, 2019 20:41
[2019-07-22] MEDS ORDERED: DOCU-143 PO (20:45)
[2019-07-22] MEDS ORDERED: MEASLES,MUMPS,RUBELLA 1 EA INJ SC ONE (20:45)
[2019-07-22] MEDS ORDERED: ONDANSETRON 4 MG/2 ML (SDV) Z0FRAN IVP PRN (20:45)
[2019-07-22] MEDS ORDERED: BENZOCAINE/MENTHOL (DERMOPLAST) 60 ML CAN TP PRN (20:45)
[2019-07-22] MEDS ORDERED: TETANUS,DIPTH,PERTUSS P/F (BOOSTRIX) 0.5 ML VIAL IM ONE (20:45)
[2019-07-22] MEDS ORDERED: OXYC1TAB87 PO (20:45)
[2019-07-22] MEDS ORDERED: IBUP-1780 PO (20:45)
--- NOTE | 2019-07-22 20:45 | Discharge Inst-Surgical ---
Discharge Inst-Surgical Depart Medication/Instructions New, Converted or Re-Newed RX: RX on Chart Consults/Follow Up Patient Instructions: As directed Orders & Referrals Follow Up Appt: Call to make follow up appt. for patient in 4 weeks. Activity Per routine post vaginal delivery instructions. Please call in RX to patient pharmacy. Diet as tolerated Patient may shower or tub bathe as desired. Activity Activity as Tolerated: No Diet Discharge Diet: No Restrictions SHALONDA CAMARGO MD Jul 22, 2019 20:45
[2019-07-22] MEDS ORDERED: CATHETER FLUSH 10 ML SYR IV SCH (22:00)
[2019-07-22] MEDS ORDERED: LIDOCAINE/EPI 2% 1:200,00 (XYLOCAINE) 10 ML VIAL ONE (22:36)
[2019-07-22] MEDS ORDERED: AMPICILLIN FOR IV USE 1,000 MG in WATER (STERILE) FOR INJECTION 7.4 ML IV SCH (22:45)
--- NOTE | 2019-07-22 23:34 | OPERATIVE REPORT ---
DATE OF SERVICE: 07/22/2019 DELIVERY NOTE The patient delivered by spontaneous vaginal delivery at 35 plus weeks gestation and viable female infant with Apgars of 8 and 9 at 1 and 5 minutes respectively, weight of 7 pounds and 6 ounces, cord blood gas had a pH of 7.32 and a time of 6. The was delivered over a first-degree perineal laceration under epidural analgesia. There was a single nuchal cord that was easily released after delivery of the head. The was bulb suctioned on delivery of the head and again on completion of delivery. Umbilical cord was relatively pulseless fairly promptly after delivery. The cord was doubly clamped, father cut the cord, the baby was taken to the warmer to the attention of Dr. Kilpatrick base ply hand in attendance for today delivery. Cord bloods were obtained. The placenta delivered quite rapidly spontaneously [place]. There was some evidence of at least marginal placental abruption. Placenta was sent to pathology for permanent section. The cervix, vagina, rectum, and perineum were examined and found to have only sustained a first-degree perineal laceration that was repaired with a single suture of 3-0 Vicryl Rapide in a running locked fashion. Sponge and needle counts were correct on completion of delivery and the repair. Estimated blood loss was around 200 mL. The patient remained in the LDR. The baby remained with the mom. Job ID: [id number] DocumentID: [id number] Dictated Date: 07/22/2019 22:55:16 Student Dean Date: 07/22/2019 23:34:05 Dictated By: SHALONDA CAMARGO MD MTDD
[2019-07-23] VITALS (12 sets, daily range): BP systolic 90–107; BP diastolic 51–76
[2019-07-23] MEDS ORDERED: OXYTOCIN PRE-MIX DRIP 500 ML IV SCH
[2019-07-23] MEDS: KETOROLAC 30 MG/ML VIAL IVP SCH ×3 (01:03→13:54)
--- NOTE | 2019-07-23 02:05 | NUR ---
no ss distress in pt, repetitive vs obtained r/t settings on labor monitor.
--- NOTE | 2019-07-23 02:50 | NUR ---
Epidural cath removed, tip in tact, site wnl and left o/a. asymptomatic per pt report. Pt assisted to bathroom up standby assist, first void since delivery, pericare pads changed, pt standby to wc and transferred to pp unit room 312, oriented to call system, info packet and surroundings. Understanding voiced, will cont to monitor.
[2019-07-23] MEDS: oxyCODONE/APAP 5/325MG (PERCOCET 5) TABLET PO PRN ×2 (05:12→17:50)
--- NOTE | 2019-07-23 07:49 | Progress Note ---
Standard Progress Note Progress Notes/Assess & Plan Date Seen by a Provider: Jul 23, 2019 Time Seen by a Provider: 07:48 Progress/Assessment & Plan This patient is without complaint. She is ambulating, voiding, tolerating oral intake well has good pain control. Vital Signs Date Time Temp Pulse Resp B/P (MAP) Pulse Ox O2 Delivery O2 Flow Rate FiO2 07/23/19 05:11 36.8 73 18 107/57 (74) 98 07/23/19 02:05 75 18 91/53 (66) 07/23/19 01:50 71 18 90/56 (67) 07/23/19 01:20 64 18 95/51 (66) 07/23/19 01:05 83 18 97/58 (71) 07/23/19 00:50 81 18 96/61 (73) 07/23/19 00:35 88 18 91/57 (68) 07/23/19 00:20 83 18 99/58 (72) 07/23/19 00:05 80 18 97/55 (69) 07/22/19 23:50 36.8 97 18 111/76 (88) 07/22/19 23:35 37.0 84 18 103/68 (80) 07/22/19 23:20 36.8 77 18 99/58 (72) 07/22/19 23:05 36.6 87 18 106/64 (78) 07/22/19 22:50 37.0 88 18 82/52 (62) 07/22/19 22:36 88 18 123/67 (85) 97 07/22/19 22:30 74 18 90/51 (64) 97 07/22/19 22:15 90 18 97/56 (70) 97 07/22/19 22:00 83 18 97/62 (74) 99 07/22/19 21:45 103 18 92/53 (66) 99 07/22/19 21:30 101 18 91/61 (71) 99 07/22/19 21:15 102 18 92/72 (79) 98 07/22/19 21:00 101 18 106/66 (79) 100 07/22/19 20:45 109 18 97/65 (76) 100 07/22/19 20:30 86 18 102/65 (77) 100 07/22/19 20:15 110 18 93/61 (72) 100 2/16/20 20:12 99 18 102/61 (75) 100 07/22/19 20:09 107 18 93/56 (68) 100 07/22/19 20:06 106 18 89/51 (64) 99 07/22/19 20:03 110 18 98/59 (72) 99 07/22/19 20:00 100 18 96/55 (69) 99 07/22/19 19:45 90 18 98/53 (68) 07/22/19 19:43 100 18 94/49 (64) 98 07/22/19 19:40 125 18 101/59 (73) 98 07/22/19 19:37 100 18 113/69 (84) 97 07/22/19 19:30 98 18 111/77 (88) 07/22/19 19:15 36.9 85 18 110/67 (81) 07/22/19 17:13 36.4 99 18 99 Room Air 07/22/19 17:09 36.4 94 18 118/75 (89) 99 Room Air Vital signs are stable. Patient is afebrile. Fundus is firm below the umbilicus and only minimally tender. Extremities show no clubbing cyanosis. There is no Homans sign. Assessment and plan day number 1 status post spontaneous vaginal delivery at 35+ weeks gestation. Patient doing well will have routine convalescence care today and consider for discharge home tomorrow Final Diagnosis 35+ week spontaneous vaginal delivery SHALONDA CAMARGO MD Jul 23, 2019 07:49
[2019-07-23] MEDS: DOCUSATE SODIUM 100 MG (COLACE) CAP PO SCH ×2 (08:51→20:31)
--- NOTE | 2019-07-23 14:30 | Anesthesia-Regional Post-Op ---
Regional Patient Condition Mental Status: Alert, Oriented x3 Circulation: Same as Pre-Op Headache: Absent Sensation: Full Recovery Motor Block: Absent Post Op Complications Complications None Follow Up Care/Instructions Patient Instructions None needed. Anesthesia/Patient Condition Patient is doing well, no complaints, stable vital signs, no apparent adverse anesthesia problems. MONA MORILLO DO Jul 23, 2019 14:30
[2019-07-23] MEDS: IBUPROFEN 800 MG (MOTRIN) TAB PO SCH (20:31)
[2019-07-24] MEDS: IBUPROFEN 800 MG (MOTRIN) TAB PO SCH ×3 (03:20→08:30)
[2019-07-24 03:23] VITALS: BP 115/68
--- NOTE | 2019-07-24 07:55 | Progress Note ---
Standard Progress Note Progress Notes/Assess & Plan Date Seen by a Provider: Jul 24, 2019 Time Seen by a Provider: 07:53 Progress/Assessment & Plan This patient is without complaint. She is ambulating, voiding, tolerating oral intake well has good pain control. Vital Signs Date Time Temp Pulse Resp B/P (MAP) Pulse Ox O2 Delivery O2 Flow Rate FiO2 07/23/19 05:11 36.8 73 18 107/57 (74) 98 07/23/19 02:05 75 18 91/53 (66) 07/23/19 01:50 71 18 90/56 (67) 07/23/19 01:20 64 18 95/51 (66) 07/23/19 01:05 83 18 97/58 (71) 07/23/19 00:50 81 18 96/61 (73) 07/23/19 00:35 88 18 91/57 (68) 07/23/19 00:20 83 18 99/58 (72) 07/23/19 00:05 80 18 97/55 (69) 07/22/19 23:50 36.8 97 18 111/76 (88) 07/22/19 23:35 37.0 84 18 103/68 (80) 07/22/19 23:20 36.8 77 18 99/58 (72) 07/22/19 23:05 36.6 87 18 106/64 (78) 07/22/19 22:50 37.0 88 18 82/52 (62) 07/22/19 22:36 88 18 123/67 (85) 97 07/22/19 22:30 74 18 90/51 (64) 97 07/22/19 22:15 90 18 97/56 (70) 97 07/22/19 22:00 83 18 97/62 (74) 99 07/22/19 21:45 103 18 92/53 (66) 99 07/22/19 21:30 101 18 91/61 (71) 99 07/22/19 21:15 102 18 92/72 (79) 98 07/22/19 21:00 101 18 106/66 (79) 100 07/22/19 20:45 109 18 97/65 (76) 100 07/22/19 20:30 86 18 102/65 (77) 100 07/22/19 20:15 110 18 93/61 (72) 100 2/16/20 20:12 99 18 102/61 (75) 100 07/22/19 20:09 107 18 93/56 (68) 100 07/22/19 20:06 106 18 89/51 (64) 99 07/22/19 20:03 110 18 98/59 (72) 99 07/22/19 20:00 100 18 96/55 (69) 99 07/22/19 19:45 90 18 98/53 (68) 07/22/19 19:43 100 18 94/49 (64) 98 07/22/19 19:40 125 18 101/59 (73) 98 07/22/19 19:37 100 18 113/69 (84) 97 07/22/19 19:30 98 18 111/77 (88) 07/22/19 19:15 36.9 85 18 110/67 (81) 07/22/19 17:13 36.4 99 18 99 Room Air 07/22/19 17:09 36.4 94 18 118/75 (89) 99 Room Air Vital signs are stable. Patient is afebrile. Fundus is firm below the umbilicus and only minimally tender. Extremities show no clubbing cyanosis. There is no Homans sign. Assessment and plan day number 1 status post spontaneous vaginal delivery at 35+ weeks gestation. Patient doing well will have routine convalescence care today and consider for discharge home tomorrow July 24, 2019 Patient is without complaint. She is ambulating, voiding, tolerating oral intake and has good pain control. Patient is requesting discharge home. She reports that her baby after having been transferred to [place] is stable. Vital Signs Date Time Temp Pulse Resp B/P (MAP) Pulse Ox O2 Delivery O2 Flow Rate FiO2 07/24/19 03:23 36.8 99 18 115/68 (84) 98 Room Air 07/23/19 20:31 36.9 90 18 93/56 (68) 100 Room Air 07/23/19 12:05 37.1 81 18 106/76 (86) 100 07/23/19 08:50 36.8 70 16 98/57 (71) 97 Vital signs are stable. Patient is afebrile. The abdomen is benign. The fundus is firm below the umbilicus and nontender. Extreme show no clubbing or cyanosis. There is no Homans sign. Assessment and plan day number 2 status post spontaneous vaginal delivery at 35+ weeks gestation. Plan is for discharge home with fol low-up in clinic Final Diagnosis 35 week spontaneous vaginal delivery SHALONDA CAMARGO MD Jul 24, 2019 07:55
[2019-07-24 08:30] VITALS: BP 100/64
[2019-07-24] MEDS: DOCUSATE SODIUM 100 MG (COLACE) CAP PO SCH (08:30)
--- NOTE | 2019-07-24 08:30 | NUR ---
A.M. ASSESSMENT COMPLETED. PT PUMPING BREASTS. PLAN TO LEAVE SOON.
[2019-07-24 09:00] VITALS: BP 100/64
--- NOTE | 2019-07-24 09:00 | NUR ---
DISMISSED AMB FROM [facility] ST[facility] BY [facility] P[facility]. PT HAD BEEN GIVEN DISCHARGE INSTRUCTIONS YESTERDAY EVENING AND ALREADY HAS RXS AND PAPERWORK. STAYED THE NIGHT R/T [facility] NOT HAVING ANY SPACE.
== END 2019-07-24 09:00 | disposition home or self-care (01) | DRG 805 ==
LOC: WSo 16:59 → LDRP 16:59 → WSo 18:36 → LDRP 18:36
PROVIDERS: ADMIT Obstetrics & Gynecology; ATTEND Obstetrics & Gynecology
PROC: 10E0XZZ Delivery of Products of Conception, External Approach (ICD-10-PCS; principal; 2019-07-22)
PROC: 0HQ9XZZ Repair Perineum Skin, External Approach (ICD-10-PCS; 2019-07-22)
DX: O60.14X0 Preterm labor third trimester with preterm delivery third trimester, not applicable or unspecified (principal); O45.8X3 Other premature separation of placenta, third trimester; O70.0 First degree perineal laceration during delivery; O69.81X0 Labor and delivery complicated by cord around neck, without compression, not applicable or unspecified; Z37.0 Single live birth; Z3A.35 35 weeks gestation of pregnancy
CPT/HCPCS: 36415; 82962; 85025; 86850; 86900; 86901; 88307; 99212

== ENCOUNTER 2020-02-23 14:50 | Emergency (ER) | payer OTHER, MEDICAID ==
[~2020-02-23 14:50] MED LIST changes: +DOCU-143 PO; +IBUP-1780 PO; +OXYC1TAB87 PO
[2020-02-23 14:55] VITALS: BP 110/85
--- NOTE | 2020-02-23 15:02 | ED Back Pain ---
General Chief Complaint: Back Problems Stated Complaint: BACK PAIN Nursing Triage Note: Has been having lower back pain for 3 days. Has been taking a muscle relaxer for pain but hasn't helped very much. Pain is currently rated at a 5/10. Is having some burning with urination. Has hx of kidney stones. Denies trauma. Nursing Sepsis Screen: No Definite Risk History of Present Illness Date Seen by Provider: Feb 23, 2020 Time Seen by Provider: 15:01 Initial Comments 24-year-old female presents with lower back pain. She reports his been going on for about 2-1/2-3 days. The pain gets worse with movement. She reports she's been taking a muscle relaxant but has had minimal relief. Reports the pain a 5 out of 10. She reports some burning with urination last weekend but none at this time. Patient presents because she has a history of kidney stones and was concerned that she might have another one. The pain is in the lower lumbar region and not up in the flank area. No nausea vomiting fever chills or other systemic complaints. Allergies and Home Medications Allergies Coded Allergies: No Known Drug Allergies (Unverified , 10/31/18) Home Medications Docusate Sodium 100 Mg Capsule, 100 MG PO BID Prescribed by: SHALONDA OQUENDO on 07/22/192044 Ibuprofen 800 Mg Tablet, 800 MG PO Q6H PRN for PAIN Prescribed by: SHALONDA OQUENDO on 07/22/192044 Oxycodone HCl/Acetaminophen 1 Each Tablet, 1 TAB PO Q4H Prescribed by: SHALONDA OQUENDO on 07/22/192044 Vit/Iron Fumarate/FA 1 Each Tablet, 1 EACH PO DAILY, (Reported) Patient Home Medication List Home Medication List Reviewed: Yes Review of Systems Constitutional: No chills, No fever, No malaise EENTM: no symptoms reported Respiratory: no symptoms reported Cardiovascular: no symptoms reported Gastrointestinal: no symptoms reported Genitourinary: see HPI Musculoskeletal: see HPI, back pain Skin: no symptoms reported Psychiatric/Neurological: No Symptoms Reported Past [id number]-Uqdbee Hx Past Med/Social Hx: Reviewed Nursing Past Med/Soc Hx Patient Social History Alcohol Use: Denies Use Recreational Drug Use: No Smoking Status: Never a Smoker 2nd Hand Smoke Exposure: No Recent Foreign Travel: No Contact w/Someone Who Travel: No Recent Infectious Disease Expo: No Recent Hopitalizations: No Immunizations Up To Date PED Vaccines UTD: Yes Date of Influenza Vaccine: Apr 02, 2019 Seasonal Allergies Seasonal Allergies: No Past Medical History Surgeries: Yes (OVARIAN CYST REMOVAL/UTERINE POLYP REMOVAL, FALLOPIAN TUBE FLUSHING ) Gallbladder Respiratory: No Currently Using CPAP: No Currently Using BIPAP: No Cardiac: No Neurological: No Female Reproductive Disorders: Ovarian Cyst Genitourinary: Yes Kidney Stones Gastrointestinal: No Musculoskeletal: No Endocrine: No HEENT: No Cancer: No Psychosocial: No Integumentary: No Blood Disorders: No Adverse Reaction/Blood Tranf: No Family Medical History Patient reports no known family medical history. Physical Exam Vital Signs Vital Signs - First Documented 02/23/20 14:55 Temp 36.6 Pulse 71 Resp 16 B/P (MAP) 110/85 (93) Capillary Refill : Less Than 3 Seconds Height, Weight, BMI Height: 5'7.50" Weight: 170lbs. 0.0oz. [phone]; 31.89 BMI Method:Stated General Appearance: No Apparent Distress, WD/WN Neck: Full Range of Motion, Supple Cardiovascular: Regular Rate, Rhythm, No Edema Respiratory: Lungs Clear, Normal Breath Sounds, No Accessory Muscle Use Gastrointestinal: Non Tender, Soft Back: No CVA Tenderness (L), No CVA Tenderness (R), No Vertebral Tenderness; Other (tenderness the lower lumbar) Extremity: Normal Capillary Refill, Normal Inspection, Normal Range of Motion Neurologic/Psychiatric: Alert, Oriented x3, Normal Mood/Affect, community representative II-XII Norm as Tested Skin: Normal Color, Warm/Dry Progress/Results/Core Measures Results/Orders Lab Results Laboratory Tests Test 02/23/20 15:03 Range/Units Urine Color YELLOW Urine Clarity CLEAR Urine pH 6.5 5-9 Urine Specific [place] 1.025 H 1.016-1.022 Urine Protein NEGATIVE NEGATIVE Urine Glucose (UA) NEGATIVE NEGATIVE Urine Ketones TRACE H NEGATIVE Urine Nitrite NEGATIVE NEGATIVE Urine Bilirubin NEGATIVE NEGATIVE Urine Urobilinogen 0.2 < = 1.0 MG/DL Urine Leukocyte Esterase NEGATIVE NEGATIVE Urine RBC (Auto) NEGATIVE NEGATIVE Urine RBC NONE /HPF Urine WBC 2-5 /HPF Urine Squamous Epithelial Cells 2-5 /HPF Urine Crystals NONE /LPF Urine Bacteria NEGATIVE /HPF Urine Casts NONE /LPF Urine Mucus MODERATE H /LPF Urine Culture Indicated NO My Orders Orders - JUN JONAS DO Urine Bedside (02/23/20 15:02) Ua Culture If Indicated (02/23/20 15:02) Ketorolac Injection (Toradol Injection) (02/23/20 15:07) Vital Signs/I&O 02/23/20 14:55 Temp 36.6 Pulse 71 Resp 16 B/P (MAP) 110/85 (93) Blood Pressure Mean: 93 Departure Impression Primary Impression: Lumbar sprain Qualified Codes: S33.5XXA - Sprain of ligaments of lumbar spine, initial encounter Disposition: HOME, SELF-CARE Condition: Stable Departure-Patient Inst. Referrals: [facility] (PCP) Primary Care Physician BBOY CALIX APRN (Family) Primary Care Physician Patient Instructions: Lumbar Muscle Strain (DC), Low Back Pain (DC) Add. Discharge Instructions: Moist warm heat to affected area Gentle stretching of affected area 4% topical lidocaine with menthol to affected area as directed on package All discharge instructions reviewed with patient and/or family. Voiced understanding. Scripts Diclofenac Potassium (Diclofenac Potassium) 50 Mg Tablet 50 MG PO BID, #14 TAB Prov: JUN JONAS DO 02/23/20 JUN JONAS DO Feb 23, 2020 15:02
[2020-02-23] MEDS ORDERED: KETOROLAC 30 MG/ML VIAL IM STA (15:07)
[2020-02-23 15:24] LABS: COLOR,URINE YELLOW
[2020-02-23 15:25] LABS: BACTERIA,URINE NEGATIVE /HPF; BILIRUBIN,URINE NEGATIVE (NEGATIVE); CLARITY,URINE CLEAR; GLUCOSE, URINE (UA) NEGATIVE (NEGATIVE); KETONES,URINE TRACE (NEGATIVE); LEUKOCYTE ESTERASE ,URINE NEGATIVE (NEGATIVE); NITRITE,URINE NEGATIVE (NEGATIVE); PH,URINE 6.5 (5-9); PROTEIN,URINE NEGATIVE (NEGATIVE)
[2020-02-23] MEDS ORDERED: DICL50TA4 PO (15:35)
== END 2020-02-23 15:40 | disposition home or self-care (01) ==
LOC: EDUNIT# 14:50 → ER FS 14:51
DX: S33.5XXA Sprain of ligaments of lumbar spine, initial encounter (principal); X58.XXXA Exposure to other specified factors, initial encounter
CPT/HCPCS: 81000; 84703; 99284

== ENCOUNTER → 2020-04-03 | Outpatient (CLI) | payer OTHER, MEDICAID ==
[~2020-04-03] MED LIST changes: +DICL50TA4 PO
--- NOTE | 2020-04-03 17:29 | Diagnostic Imaging Report ---
INDICATION: Renal stone. COMPARISON: CT abdomen and pelvis of 05/14/2019. FINDINGS: No soft tissue mineralization along the expected position of the renal fossa or ureters. Cholecystectomy clips are noted. IUD is in place in the pelvis. Nonobstructive bowel gas pattern. [id number] volume of colonic stool. IMPRESSION: No radiographically apparent urinary tract calculi. Dictated by: Dictated on workstation # [id number]
== END ==
LOC: RAD FS 16:53
PROVIDERS: ATTEND Urology
DX: N20.0 Calculus of kidney (principal)
CPT/HCPCS: 74018